=== PATIENT | female | born 1990 | race Caucasian/White ===

== ENCOUNTER 2021-10-19 10:05 | Emergency (ER) | payer BC ==
[2021-10-19 12:06] LABS: Bilirubin Neg (Negative); Blood, Urine 150 (Negative); Clarity Clear (Clear); Glucose, Urine (Dipstick) Normal (Negative); Ketone, Urine Negative (Negative); Leukocyte 100 (Negative); Nitrite Negative (Negative); Protein, Urine (Dipstick) Negative (Neg-Trace); Specific Gravity, Urine 1.005 (1.002-1.036); Urobilinogen Normal mg/dL (Less than 2)
[2021-10-19 12:29] LABS: #Basophils 0.1 10x3/uL (0.0-0.2); #Eosinphils 0.1 10x3/uL (0.0-0.5); #Monocytes 0.4 10x3/uL (0.0-1.1); #Neutrophils 5.1 10x3/uL (1.5-8.4); %Basophils 0.7 % (0.0-2.0); %Lymphocytes 22.5 % (18.0-47.0); %Neutrophils 70.5 % (40.0-75.0); Hemoglobin 13.3 g/dL (12.0-15.5); Mean Corpuscular HGB CONC 33.8 g/dL (32.0-36.0); Mean Corpuscular Hemoglobin 27.8 pg (27.0-33.0); Mean Corpuscular Volume 82.4 fl (81.6-98.3); Mean Platelet Volume 10.6 fl (7.4-10.4); Platelet Count 212 10x3/uL (150-450); RBC Distribution Width 13.5 % (11.5-14.5); Red Blood Cell (RBC) Count 4.78 10x6/uL (3.90-5.03); White Blood Cell (WBC) Count 7.3 10x3/uL (3.5-10.5)
[2021-10-19 12:36] LABS: Bacteria/HPF 2+ HPF (None Seen)
== END 2021-10-19 13:45 | disposition home or self-care (01) ==
LOC: CSHERS 10:05
DX: O20.0 Threatened abortion (principal); O23.41 Unspecified infection of urinary tract in pregnancy, first trimester; N39.0 Urinary tract infection, site not specified; Z3A.01 Less than 8 weeks gestation of pregnancy
CPT/HCPCS: 36415; 76856; 81003; 81015; 84702; 85025; 86900; 86901

== ENCOUNTER 2021-11-27 08:07 | Day surgery (SDC) | payer BC ==
[2021-11-26 17:07] LABS: Hemoglobin 11.1 g/dL (12.0-15.5); Mean Corpuscular HGB CONC 33.2 g/dL (32.0-36.0); Mean Corpuscular Hemoglobin 27.5 pg (27.0-33.0); Mean Corpuscular Volume 82.9 fl (81.6-98.3); Mean Platelet Volume 10.2 fl (7.4-10.4); Platelet Count 205 10x3/uL (150-450); RBC Distribution Width 13.2 % (11.5-14.5); Red Blood Cell (RBC) Count 4.03 10x6/uL (3.90-5.03); White Blood Cell (WBC) Count 8.6 10x3/uL (3.5-10.5)
[2021-11-27] MEDS ORDERED: Lidocaine 1% MPF 2 ML VIAL ONE (08:29)
[2021-11-27] MEDS ORDERED: CeleCOXIB 100 MG CAP ONE (08:29)
[2021-11-27 08:53] VITALS: BMI 40.3
[2021-11-27] MEDS ORDERED: CEFAZOLIN 2 GM VIAL ONE (09:19)
[2021-11-27] MEDS ORDERED: PROPOFOL 20 ML ONE (09:43)
[2021-11-27] MEDS ORDERED: Fentanyl 100 MCG/2 ML VIAL ONE (09:43)
[2021-11-27] MEDS ORDERED: Lidocaine 2% PF 5 ML VIAL ONE (09:50)
[2021-11-27] MEDS ORDERED: Ondansetron PF 4 MG/2 ML Vial ONE (10:06)
== END 2021-11-27 12:20 | disposition home or self-care (01) ==
LOC: CSHSDC 08:07
PROVIDERS: ATTEND Student in an Organized Health Care Education/Training Program
PROC: 10D17ZZ Extraction of Products of Conception, Retained, Via Natural or Artificial Opening (ICD-10-PCS; principal; 2021-11-27)
DX: O03.4 Incomplete spontaneous abortion without complication (principal); E66.9 Obesity, unspecified; Z68.41 Body mass index [BMI] 40.0-44.9, adult; Z20.822 Contact with and (suspected) exposure to COVID-19
CPT/HCPCS: 85027; 86850; 86900; 86901; 87811; 88305; J0690; J2001; J2405; J2704; J3010

== ENCOUNTER 2024-02-28 15:23 | Day surgery (SDC) | payer BC ==
[2024-02-28 16:09] VITALS: BMI 42.7
[2024-02-28 20:14] LABS: Bilirubin Neg (Negative); Blood, Urine Negative (Negative); Clarity Clear (Clear); Glucose, Urine (Dipstick) Normal (Negative); Ketone, Urine 15 mg/dL (Negative); Leukocyte 25 (Negative); Nitrite Negative (Negative); Protein, Urine (Dipstick) Negative (Neg-Trace); Specific Gravity, Urine 1.005 (1.005-1.030); Urobilinogen Normal mg/dL (Less than 2)
[2024-02-28 20:45] LABS: Bacteria/HPF Rare-Few HPF (None Seen); CAUTI Indications for Culture Pregnancy; RBC/HPF 0-3 HPF (0-3)
[2024-02-28 20:47] LABS: Urine Culture Reflex No No; Urine Culture Reflex Yes Yes
== END 2024-02-28 20:55 | disposition home or self-care (01) ==
LOC: CSHLD/OP 15:23
PROVIDERS: ATTEND Obstetrics & Gynecology
DX: O47.03 False labor before 37 completed weeks of gestation, third trimester (principal); O24.419 Gestational diabetes mellitus in pregnancy, unspecified control; O99.283 Endocrine, nutritional and metabolic diseases complicating pregnancy, third trimester; E28.2 Polycystic ovarian syndrome; Z79.899 Other long term (current) drug therapy; Z3A.34 34 weeks gestation of pregnancy; Z98.890 Other specified postprocedural states
CPT/HCPCS: 81001; 87086; 87480; 87510; 87660; 99285

== ENCOUNTER 2024-04-03 11:25 | Day surgery (SDC) | payer BC ==
[2024-04-03 12:07] VITALS: BMI 41.9
[2024-04-03 12:33] LABS: Fetal Membranes Rupture No Membranes Rupture (No Rupture)
[2024-04-03] MEDS ORDERED: hydrALAZINE 20 MG/ML VIAL SLOW IVP PRN (12:45)
== END 2024-04-03 14:32 | disposition home or self-care (01) ==
LOC: CSHLD/OP 11:25
PROVIDERS: ATTEND Obstetrics & Gynecology
DX: O47.1 False labor at or after 37 completed weeks of gestation (principal); Z03.71 Encounter for suspected problem with amniotic cavity and membrane ruled out; O99.283 Endocrine, nutritional and metabolic diseases complicating pregnancy, third trimester; E28.2 Polycystic ovarian syndrome; Z87.51 Personal history of pre-term labor; Z3A.39 39 weeks gestation of pregnancy
CPT/HCPCS: 84112; 99283

== ENCOUNTER 2024-04-06 05:30 | Inpatient (IN) | payer BC ==
[2024-04-06 05:59] VITALS: BMI 42.6
[2024-04-06] MEDS ORDERED: Ondansetron PF 4 MG/2 ML Vial IVP PRN ×3 (06:18→17:50)
[2024-04-06] MEDS ORDERED: Lidocaine 1% (PF) 30 ML VIAL SC PRN (06:18)
[2024-04-06] MEDS ORDERED: HYDROcodone/Acetaminophen 5/325 mg Tablet PO PRN ×4 (06:18→17:50)
[2024-04-06] MEDS ORDERED: Diphenoxylate HCl/Atropine Tablet PO PRN ×2 (06:18)
[2024-04-06] MEDS ORDERED: Misoprostol 200 MCG TAB PR PRN (06:18)
[2024-04-06] MEDS ORDERED: Ibuprofen 800 MG TAB PO PRN (06:18)
[2024-04-06] MEDS ORDERED: Carboprost 250 MCG/ML AMP IM PRN (06:18)
[2024-04-06] MEDS ORDERED: Promethazine HCl 25 MG/ML VIAL IM PRN ×2 (06:18→14:11)
[2024-04-06] MEDS ORDERED: fentaNYL 50 mcg/mL 1 mL Vial SLOW IVP PRN (06:18)
[2024-04-06] MEDS ORDERED: Methylergonovine 0.2 MG/ML VIAL IM PRN ×2 (06:18→17:50)
[2024-04-06] MEDS ORDERED: hydrALAZINE 20 MG/ML VIAL SLOW IVP PRN ×2 (06:18→17:50)
[2024-04-06] MEDS ORDERED: Lactated Ringer's 1,000 ML IV SCH (06:30)
[2024-04-06] MEDS: Penicillin G Potassium 5 MILL.UNITS in Sodium Chloride 0.9% 100 ML IVPB SCH (06:47)
[2024-04-06 06:58] LABS: Hematocrit 30.8 % (34.9-44.5); Hemoglobin 10.2 g/dL (12.0-15.5); Mean Corpuscular HGB CONC 33.1 g/dL (32.0-36.0); Mean Corpuscular Hemoglobin 26.8 pg (27.0-33.0); Mean Corpuscular Volume 80.8 fL (81.6-98.3); Mean Platelet Volume 11.3 fL (7.4-10.4); Platelet Count 141 10x3/uL (150-450); RBC Distribution Width 14.9 % (11.5-14.5); Red Blood Cell (RBC) Count 3.81 10x6/uL (3.90-5.03); White Blood Cell (WBC) Count 7.6 10x3/uL (3.5-10.5)
[2024-04-06 07:37] LABS: HBsAg Index 0.17 S/CO (0-0.99); Hep B Surf Ag - L&D Non-Reactive S/CO (NonReactive)
[2024-04-06 07:39] LABS: Syphilis Antibody Nonreactive (Nonreactive); Syphilis Antibody Index 0.07 S/CO (<1.00 Non-Reactive)
[2024-04-06] MEDS: Penicillin G 2.5 MILL.units 2.5 MILL.UNITS in Premix 1 BAG IVPB SCH (10:31)
[2024-04-06] MEDS: fentaNYL 2 mcg/Ropivacaine 0.2% Epidural 100 ML CADD EPIDURAL SCH (14:06)
[2024-04-06] MEDS ORDERED: Lactated Ringer's 500 ML IV PRN (14:11)
[2024-04-06] MEDS ORDERED: Moisturizing Cream (Eucerin) 113 GM JAR TOP PRN (14:11)
[2024-04-06] MEDS ORDERED: ePHEDrine Sulfate 50 MG/10 ML VIAL SLOW IVP PRN (14:11)
[2024-04-06] MEDS ORDERED: Acetaminophen 325 MG TAB PO PRN (14:11)
[2024-04-06] MEDS ORDERED: diphenhydrAMINE 50 MG/ML VIAL IVP PRN (14:11)
[2024-04-06] MEDS ORDERED: Naloxone HCl 0.4 mg/ml Vial IVP PRN ×2 (14:11)
[2024-04-06] MEDS ORDERED: Communication Order-Pharmacy FS SCH (14:15)
[2024-04-06] MEDS: Oxytocin 30 units/NS 500 ML 500 ML IV SCH (15:56)
[2024-04-06 16:14] LABS: Analyzer IN Cardio CS NICU; RapidComm Collect By RN
[2024-04-06 16:16] LABS: Analyzer IN Cardio CS NICU; RapidComm Collect By RN
[2024-04-06] MEDS ORDERED: Oxytocin 30 units/NS 500 ML 500 ML IV SCH (17:50)
[2024-04-06] MEDS ORDERED: Milk Of Magnesia 30 ML UDCUP PO PRN (17:50)
[2024-04-06] MEDS ORDERED: Benzocaine-Menthol 82.5 ML CAN TOP PRN (17:50)
[2024-04-06] MEDS ORDERED: Lanolin Ointment 7 GM TUBE TOP PRN (17:50)
[2024-04-06] MEDS ORDERED: Bisacodyl 10 MG SUPP PR PRN (17:50)
[2024-04-06] MEDS ORDERED: Misoprostol 200 MCG TAB VAG PRN (17:50)
[2024-04-06] MEDS: fentaNYL/Ropivacaine Epidural 100 ML ONE (19:18)
[2024-04-06] MEDS: Ferrous Sulfate 325 MG TAB PO SCH (19:18)
[2024-04-06] MEDS: Ibuprofen 800 MG TAB PO SCH (21:13)
[2024-04-06] MEDS: Docusate 100 MG CAP PO SCH (21:13)
[2024-04-07] MEDS: Boostrix 0.5 ML (Tdap) VIAL (>/=7 yrs of age) IM ONE (07:38)
[2024-04-07] MEDS: Ferrous Sulfate 325 MG TAB PO SCH (07:39)
[2024-04-07] MEDS: Prenatal Vitamin 1 TAB PO SCH (08:26)
[2024-04-07 11:01] VITALS: BP 117/56; TEMP 98
== END 2024-04-07 18:00 | disposition home or self-care (01) | DRG 807 ==
LOC: CSHLD 05:32 → CSHPP 18:20
PROVIDERS: ADMIT Obstetrics & Gynecology; ATTEND Obstetrics & Gynecology
PROC: 10E0XZZ Delivery of Products of Conception, External Approach (ICD-10-PCS; principal; 2024-04-06)
PROC: 4A033R1 Measurement of Arterial Saturation, Peripheral, Percutaneous Approach (ICD-10-PCS; 2024-04-06)
DX: O99.824 Streptococcus B carrier state complicating childbirth (principal); Z37.0 Single live birth; Z3A.39 39 weeks gestation of pregnancy; O66.0 Obstructed labor due to shoulder dystocia; O99.214 Obesity complicating childbirth; E66.01 Morbid (severe) obesity due to excess calories
CPT/HCPCS: 51702; 82805; 85027; 86780; 86850; 86900; 86901; 87340; J2540; J2590